=== PATIENT | male | born 1990 | race African-American/Black ===

== ENCOUNTER 2025-01-24 03:52 | Emergency (ER) | payer OTHER ==
[~2025-01-24] VITALS: Ht 170.2 cm; Wt 65.0 kg
[2025-01-24 03:59] VITALS: O2SAT 100
[2025-01-24] MEDS: FENTANYL CITRATE/PF 50MCG/ML 2ML VIAL IV ONE (04:20)
[2025-01-24] MEDS: TETANUS, DIPHTHERIA, PERTUSSIS VAC/PF 0.5ML (>10YR OLD) IM ONE (04:21)
[2025-01-24] MEDS: ONDANSETRON HCL 4MG/2ML INJ IV STA (04:21)
[2025-01-24] MEDS: CEFTRIAXONE 1GM/50ML 50 ML IV ONE (04:21)
[2025-01-24] MEDS: SODIUM CHLORIDE 0.9% 1,000 ML IV ONE (04:38)
[2025-01-24 04:50] VITALS: BP 173/83; PULSE 50; RESP 13; TEMP 36.4; O2SAT 100
== END 2025-01-24 05:06 | disposition short-term general hospital (02) ==
LOC: ER 03:52 → EDBD 03:52 → ER 05:06
DX: S52.92XB Unspecified fracture of left forearm, initial encounter for open fracture type I or II (principal); T79.A0XA Compartment syndrome, unspecified, initial encounter; W34.00XA Accidental discharge from unspecified firearms or gun, initial encounter; Y93.89 Activity, other specified; Y92.89 Other specified places as the place of occurrence of the external cause; Y99.8 Other external cause status
CPT/HCPCS: 73090; 90715; 29125; 90471; 96365; 96375; 99291; J3010; J0696; J2405; J7030; Z7610